=== PATIENT | female | born 1950 | race Caucasian/White ===

== ENCOUNTER → 2020-11-10 | Outpatient (CLI) | payer MEDICARE ==
[2020-11-10 16:40] LABS: HEMOGLOBIN 16.1 gm/dl (12.3-15.3); RED BLOOD COUNT 5.09 M/UL (4.00-5.10); WHITE BLOOD COUNT 5.1 K/UL (4.5-11.0)
[2020-11-10 17:54] LABS: BUN/CREATININE RATIO 28 (0-10)
== END ==
LOC: LAB 15:36
PROVIDERS: Nurse Practitioner Family
DX: Z51.81 Encounter for therapeutic drug level monitoring (principal); Z79.1 Long term (current) use of non-steroidal anti-inflammatories (NSAID)
CPT/HCPCS: 36415; 80053; 85025; 85652; 86140

== ENCOUNTER → 2021-02-10 | Outpatient (CLI) | payer MEDICARE | LOC: RAD 11:51 | DX: M25.561 Pain in right knee (principal); M25.562 Pain in left knee; M19.90 Unspecified osteoarthritis, unspecified site; Z00.00 Encounter for general adult medical examination without abnormal findings | CPT/HCPCS: 73565 ==

== ENCOUNTER 2021-09-20 14:35 | Emergency (ER) | payer MEDICARE ==
[2021-09-20 16:32] LABS: HEMOGLOBIN 14.3 gm/dl (12.3-15.3); RED BLOOD COUNT 4.53 M/UL (4.00-5.10); WHITE BLOOD COUNT 8.7 K/UL (4.5-11.0)
[2021-09-20] MEDS ORDERED: CYCLOBENZAPRINE10 MG PO (17:25)
[2021-09-20] MEDS ORDERED: IBUPROFEN600 MG PO (17:25)
== END 2021-09-20 18:00 | disposition home or self-care (01) ==
LOC: ER1 14:35
PROVIDERS: Physician Assistant
DX: S00.83XA Contusion of other part of head, initial encounter (principal); S80.12XA Contusion of left lower leg, initial encounter; S20.222A Contusion of left back wall of thorax, initial encounter; E78.5 Hyperlipidemia, unspecified; Z23 Encounter for immunization; X50.9XXA Other and unspecified overexertion or strenuous movements or postures, initial encounter; Y93.9 Activity, unspecified
CPT/HCPCS: 70450; 71045; 72125; 72128; 72131; 73590; 80053; 82550; 82553; 83690; 84484; 85025; 90471; 90715; 99284; Q9967